=== PATIENT | male | born 1960 | race Caucasian/White ===

== ENCOUNTER → 2017-10-18 | Outpatient (CLI) | payer OTHER ==
[~2017-10-18] MED LIST: GLC/500 PO; MULT-506 PO; OMEG10007 PO
[2017-10-18 13:04] LABS: ALBUMIN 4.2 gm/dl (3.4-5.0); ALT/SGPT 45 U/L (12-78); AST/SGOT 20 U/L (15-37); BLOOD UREA NITROGEN 16 mg/dl (7-18); CALCIUM 9.5 mg/dl (8.5-10.1); CARBON DIOXIDE 28 mmol/L (21-32); CHOLESTEROL 178 mg/dl (0-200); CREATININE 1.16 mg/dl (0.60-1.40); GLUCOSE 107 mg/dl (70-99); SODIUM 137 mmol/L (136-145)
[2017-10-18 13:07] LABS: ALKALINE PHOSPHATASE 75 U/L (45-117); LDL CHOLESTEROL CALCULATED 112 mg/dl; TOTAL PROTEIN 7.9 gm/dl (6.4-8.2)
[2017-10-18 13:10] LABS: HEMOGLOBIN A1C 5.7 % (4.5-5.6)
== END | disposition home or self-care (01) ==
LOC: C.LAB1850 11:02
PROVIDERS: ATTEND Nurse Practitioner Family
DX: E88.81 Metabolic syndrome and other insulin resistance (principal); E78.00 Pure hypercholesterolemia, unspecified; R73.9 Hyperglycemia, unspecified